=== PATIENT | male | born 1955 | race Caucasian/White ===

== ENCOUNTER 2025-02-12 14:19 | Outpatient (AMB) | payer MEDICARE, SELFPAY ==
--- OUTSIDE RECORDS SUMMARY | 2025-02-12 14:22 | XMS_ITS | Clinical Summary ---
Author Organization [facility] Address [address] [place] [address] Care Team Providers Care [facility] Name Role Phone Heath Higginbotham MD Primary Care Provider Medications No known medications Active Problems No known active problems Social History Tobacco Use Types Packs/Day Years Used Date Smoking Tobacco: Never Assessed Sex and Gender Information Value Date Recorded Sex Assigned at Not on file Legal Sex Male 12:35 PM EDT Gender Identity Not on file Sexual Orientation Not on file Plan of Treatment Health Maintenance Due Date Last Done Comments Hepatitis C Virus Screening 1955 DTaP/Tdap/Td Vaccines (1 - Tdap) 1974 Colonoscopy 2000 Pneumococcal Vaccines 50+ (1 of 1 - PCV) 2005 Zoster (Shingles) Vaccine (1 of 2) 2005 COVID-19 Vaccine ( - 2023-2 5 season) 2024 Influenza Vaccine 04/23/2025 RSV Vaccine 60 years and old er and Patients (1 - 1-dose 75+ series) 2030 Hepatitis B Vaccines Aged Out No long er eligible based on patient's age to complete this [place] [id number] [facility] [place] [employer] Care Teams [employer] [employer] Relationship Specialty Start Date End Date Heath Higginbotham MD PCP - General Internal Medicine 03/12/23
--- NOTE | 2025-02-12 14:47 | A.OFFVIS_ITS ---
Vital Signs 02/12/25 14:49 Height 5 ft 10 in Weight 156 lb 8 oz BMI 22.5 BP 118/72 Blood Pressure Location Rt brachial Position Sitting Pulse 100 Pulse Source Pulse Oximeter Pulse Oximetry (%) 98 Oxygen Delivery Method Room Air Intake Visit Reasons: Pulmonary Nodules Allergies No Known Allergies Allergy (Verified 02/12/25 14:52) HPI HPI Pulmonary Nodules: Details: Win is a pleasant 69-year-old male, never smoker with no significant past medical history. He was referred by PCP for for known history of pulmonary nodules. Prior chest CT 2022 revealed pulmonary nodules 4mm and 8 mm nodules of the RLL, stable from 2021 and most recent chest CT 2024 revealed new/ growing 7 mm pulmonary nodule of LLL. He currently denies any respiratory symptoms. Denies history of recurrent respiratory infections, he did contract COVID x 2. He denies any occupational exposures. He denies any secondhand smoke exposure. He denies any seasonal allergies. He denies any personal or family h/o autoimmune conditions. He denies any joint pain, fevers, chills, weight loss, skin changes, dry cough or dry eyes. He denies any pertinent family history. [facility] Social History (Updated 02/12/25 @ 14:51 by Juanita Goetz [facility]) Patient Tobacco Use Status: Never used Tobacco Review of Systems Const Denies chills, Denies excessive sweating, Denies fever(s), Denies headache(s) and Denies night sweats Eyes Denies dry eyes, Denies irritation and Denies itchy eyes ENT Reports Normal hearing present, Denies headache(s), Denies nasal congestion, Denies nasal discharge, Denies post nasal drip and Denies sore throat Card Denies chest pain, Denies chest pain at rest, Denies chest pain with activity, Denies claudication, Denies leg edema, Denies dyspnea, Denies dyspnea on exertion, Denies orthopnea and Denies paroxysmal nocturnal dyspnea Resp Denies chest congestion, Denies cough, Denies excessive phlegm production, Denies pain on inspiration, Denies pain with cough, Denies dyspnea, Denies dyspnea on exertion, Denies stridor and Denies wheezing Musc Denies myalgias Neuro Reports Normal hearing present and Denies headache(s) Endo Denies excessive sweating Marvin/Lymph Denies lymphadenopathy Aller/Immun Denies itchy eyes, Denies seasonal rhinorrhea and Denies wheezing Physical Exam Vital Signs: Last Vital Signs Pulse 100 02/12/25 14:49 BP 118/72 02/12/25 14:49 Pulse Ox 98 02/12/25 14:49 Oxygen Delivery Method Room Air 02/12/25 14:49 BMI result Body Mass Index 22.5 Const General: cooperative, healthy appearing, comfortable, no acute distress, well developed and alert Orientation/consciousness: patient oriented x3 Limitations: no limitations HEENT Head: Yes normal to inspection, Yes normocephalic and Yes atraumatic Ears: hearing grossly normal bilaterally and external ears normal Eyes General: appearance normal, both eyes and all related structures Eyelids: Yes eyelids normal Sclerae: sclerae normal EOM: EOMs intact bilaterally Neck Neck: Yes normal visual inspection and Yes no lymphadenopathy Lymphatic: no lymphadenopathy noted Chest Chest palpation & inspection: normal inspection of the chest Resp Effort & Inspection: normal respiratory effort, able to speak in complete sentences, no audible wheezes, no cough, no stridor, not tachypneic, no tripod positioning and no use of accessory muscles Auscultation: clear to auscultation bilaterally Cardio Jugular venous distension: no JVD Rate: regular rate Rhythm: regular rhythm Skin Other: warm, dry General skin exam: no rashes or lesions noted Neuro General: patient oriented x3 Cranial nerves: Yes Normal hearing present Cognition (Neuro): normal cognition Gait exam (Neuro): Normal gait present Extrem General: Yes normal to inspection, Yes capillary refill normal, Yes no clubbing, cyanosis or edema and Yes no pedal edema Psych Appearance: grossly normal and well kempt Speech and movement: Normal speech and movement present and Clear speech present Affect: normal affect Attitude: cooperative Thought process: Normal thought process present Thought content: Normal thought content present Insight: Good insight present (Psych) Judgement: Good judgement present (Psych) Assessment & Plan Assessment & Plan (1) Multiple pulmonary nodules: Code(s): R91.8 - Other nonspecific abnormal finding of lung field Category: Medical Plan Win presents for pulmonary evaluation after recent chest CT revealed multiple pulmonary nodule, unclear if this is a new 7mm pulmonary nodule of LLL or increased in size from prior chest CT. Will obtain CT image from [facility] to compare to [facility] images and decide whether to repeat chest CT in 3 vs 6 months. All questions were answered the patient was minimal plan. Will follow-up to review results or sooner if needed. Coding Level of Care Code New Pt Level 3 (12082) Diagnoses Multiple pulmonary nodules R91.8
[2025-02-12 14:49] VITALS: BP 118/72; PULSE 100; O2SAT 98; BMI 22.5
== END 2025-02-12 15:44 | disposition home or self-care (01) ==
LOC: HO.HPSW 14:20
PROVIDERS: PCP Internal Medicine; Referring Provider Internal Medicine; Visit Provider Nurse Practitioner Family
DX: R91.8 Other nonspecific abnormal finding of lung field (principal)
CPT/HCPCS: 99203

== ENCOUNTER → 2025-02-12 14:19 | Outpatient (BNVA) | payer MEDICARE, SELFPAY | PROVIDERS: PCP Internal Medicine; Referring Provider Internal Medicine; Visit Provider Nurse Practitioner Family | DX: R91.8 Other nonspecific abnormal finding of lung field (principal) | CPT/HCPCS: 99202 ==